=== PATIENT | female | born 1940 | race Two or more races ===

== ENCOUNTER 2022-11-09 17:09 | Emergency (ER) | payer MEDICARE, MEDICAID ==
[~2022-11-09] VITALS: Ht 165.1 cm; Wt 59.0 kg
[2022-11-09] MEDS ORDERED: KETOROLAC 60MG/2ML VIAL IM ONE (18:00)
[2022-11-09 19:00] VITALS: BP 150/72
== END 2022-11-10 02:16 ==
LOC: ER 17:09
DX: S40.011A Contusion of right shoulder, initial encounter (principal); S70.01XA Contusion of right hip, initial encounter; I11.0 Hypertensive heart disease with heart failure; I50.9 Heart failure, unspecified; F03.90 Unspecified dementia, unspecified severity, without behavioral disturbance, psychotic disturbance, mood disturbance, and anxiety; W01.0XXA Fall on same level from slipping, tripping and stumbling without subsequent striking against object, initial encounter; Y93.89 Activity, other specified; Y92.128 Other place in nursing home as the place of occurrence of the external cause
CPT/HCPCS: 73030; 73502; 96372; 99284; J1885

== ENCOUNTER 2022-11-11 17:13 | Inpatient (IN) | payer MEDICARE, MEDICAID ==
[~2022-11-11] VITALS: Ht 152.4 cm; Wt 76.2 kg
[2022-11-11 18:37] LABS: BG BASE EXCESS 0.4 mmol/L (-2.0-2.0); BG CARBOXYHEMOGLOBIN 0.3 % (0.5-1.5); BG DEOXYHEMOGLOBIN 10.4 % (0.0-5.0); BG FRACTION INSPIRED OXYGEN 21; BG HCO3 ACT 23.3 mmol/L (22.0-26.0); BG METHEMOGLOBIN 0.5 % (0.0-1.5); BG OXYGEN SATURATION 89.5 % (92.0-98.5); BG OXYHEMOGLOBIN 88.8 % (94.0-97.0); BG PCO2 31.8 mmHg (35.0-45.0); BG PH 7.483 (7.350-7.450); BG PO2 52.5 mmHg (75.0-100.0); BG SAMPLE SITE RIGHT BRACHIAL; BG TOTAL HEMOGLOBIN 11.4 g/dL (12.0-18.0); BG VENT MODE ROOM AIR
[2022-11-11] MEDS ORDERED: ALBUTEROL (0.083%) 2.5MG/3ML NEB HHN STA (18:41)
[2022-11-11] MEDS ORDERED: PREDNISONE 20MG TABLET PO STA (18:41)
[2022-11-11] MEDS ORDERED: IPRATROPIUM BROMIDE (0.02%) 0.5MG/2.5ML NEB HHN STA (18:41)
[2022-11-11] MEDS ORDERED: PIPERACILLIN/TAZ 3.375G PREMIX 50 ML IV ONE (19:45)
[2022-11-11] MEDS ORDERED: LEVOFLOXACIN 750MG PREMIX 150 ML IV ONE (19:45)
[2022-11-11 21:09] LABS: BASOPHILS % 0.3 % (0.0-2.0); EOSINOPHILS % 2.6 % (0.0-5.0); HEMATOCRIT. 32.8 % (36.0-48.0); HEMOGLOBIN. 10.9 g/dL (12.0-16.0); MEAN CORPUSCULAR VOLUME 87.3 fL (81.0-99.0); MEAN PLATELET VOLUME 7.6 fl (7.4-10.4); MONOCYTES % 11.6 % (2.0-8.0); NEUTROPHILS % 75.5 % (40.0-76.0); PLATELET 204 x1000/uL (130-400); RED BLOOD CELL COUNT 3.75 mill/uL (4.2-5.4)
[2022-11-11 21:17] LABS: CHLORIDE 106 mEq/L (98-107)
[2022-11-11 21:20] LABS: INR 1.1; PROTHROMBIN TIME 11.5 sec (9.6-11.0)
[2022-11-11] MEDS ORDERED: FUROSEMIDE 40MG/4ML VIAL IVP ONE (21:45)
[2022-11-11] MEDS ORDERED: PIPERACILLIN/TAZ 3.375G PREMIX 50 ML IV NR (23:15)
[2022-11-11] MEDS ORDERED: LEVOFLOXACIN 750MG PREMIX 150 ML IV NR (23:15)
[2022-11-12] VITALS (7 sets, daily range): BP systolic 93–127; BP diastolic 56–94
[2022-11-12] MEDS ORDERED: NITROGLYCERIN 0.4MG TABLET SL SL PRN
[2022-11-12] MEDS ORDERED: ACETAMINOPHEN 650MG/20.3ML UDC GT PRN ×2
[2022-11-12] MEDS ORDERED: CLONIDINE 0.1MG TABLET PO PRN
[2022-11-12] MEDS ORDERED: DIPHENHYDRAMINE 50MG/ML VIAL IV PRN
[2022-11-12] MEDS ORDERED: GUAIFENESIN 200MG/10ML SUGAR FREE UDC PO PRN
[2022-11-12] MEDS ORDERED: DOCUSATE SODIUM 100MG CAPSULE PO PRN
[2022-11-12] MEDS ORDERED: POTASSIUM CHLORIDE 20MEQ TABLET SR PO NR
[2022-11-12] MEDS ORDERED: IPRATROPIUM/ALBUTEROL 0.5-3(2.5)MG/3ML NEB HHN PRN
[2022-11-12] MEDS ORDERED: ONDANSETRON HCL 4MG/2ML INJ IV PRN
[2022-11-12] MEDS ORDERED: MAGNESIUM/ALUMINUM HYDROXIDE/SIMETHICONE 30ML UDC PO PRN
[2022-11-12 05:03] LABS: HEMATOCRIT. 33.1 % (36.0-48.0); MEAN CORPUSCULAR HEMOGLOBIN 28.7 pg (28.0-32.0); MEAN CORPUSCULAR VOLUME 86.3 fL (81.0-99.0); MEAN PLATELET VOLUME 8.1 fl (7.4-10.4); PLATELET 225 x1000/uL (130-400); RED BLOOD CELL COUNT 3.83 mill/uL (4.2-5.4); RED CELL DISTRIBUTION WIDTH 15.8 % (11.6-14.6)
[2022-11-12 05:10] LABS: CHLORIDE 103 mEq/L (98-107)
[2022-11-12 05:24] LABS: HDL CHOLESTEROL 74 mg/dL (40-59); LDL CHOLESTEROL 82 mg/dL (5-100); PHOSPHORUS 2.6 mg/dL (2.5-4.9); T4 FREE 1.49 ng/dL (0.76-1.46); TOTAL IRON BINDING CAPACITY 309 ug/dL (250-450)
[2022-11-12 05:28] LABS: FERRITIN 56 ng/mL (10-291)
[2022-11-12 05:41] LABS: FOLIC ACID (FOLATE) SERUM >20 ng/mL ng/mL (>5.38); VITAMIN B12 SERUM 418 pg/mL (211-911)
[2022-11-12] MEDS ORDERED: ENOXAPARIN 60MG/0.6ML SYR SUBCUT SCH (06:00)
[2022-11-12 08:07] LABS: BG BASE EXCESS 4.2 mmol/L (-2.0-2.0); BG CARBOXYHEMOGLOBIN 0.3 % (0.5-1.5); BG DEOXYHEMOGLOBIN 4.8 % (0.0-5.0); BG HCO3 ACT 27.7 mmol/L (22.0-26.0); BG METHEMOGLOBIN 0.2 % (0.0-1.5); BG OXYGEN SATURATION 95.2 % (92.0-98.5); BG OXYHEMOGLOBIN 94.7 % (94.0-97.0); BG PCO2 37.3 mmHg (35.0-45.0); BG PH 7.488 (7.350-7.450); BG PO2 72.5 mmHg (75.0-100.0); BG SAMPLE SITE RIGHT BRACHIAL; BG VENT MODE NASAL CANNULA
[2022-11-12] MEDS ORDERED: ENOXAPARIN 40MG/0.4ML SYR SUBCUT SCH (09:00)
[2022-11-12] MEDS: LISINOPRIL 10MG TABLET PO SCH ×2 (09:00)
[2022-11-12] MEDS: ASPIRIN 81MG EC TABLET PO SCH (09:00)
[2022-11-12] MEDS ORDERED: IOHEXOL-350 100 ML BOTTLE ONE (09:41)
[2022-11-12] MEDS: FUROSEMIDE 40MG/4ML VIAL IV SCH ×2 (09:59)
[2022-11-12 10:36] LABS: CREATINE KINASE 56 IU/L (26-192); CREATINE KINASE MB FRACTION < 1.0 ng/mL (0.5-3.6)
[2022-11-12 10:47] LABS: PLATELET ESTIMATE NORMAL
[2022-11-12] MEDS ORDERED: ALBUTEROL (0.083%) 2.5MG/3ML NEB HHN PRN (12:00)
[2022-11-12] MEDS ORDERED: IPRATROPIUM BROMIDE (0.02%) 0.5MG/2.5ML NEB HHN PRN (12:00)
[2022-11-12] MEDS ORDERED: CEFTRIAXONE 1 G PREMIX 50 ML IV SCH (14:45)
[2022-11-12] MEDS ORDERED: DEXL60CA3 PO (15:08)
[2022-11-12] MEDS ORDERED: MEMA5TAB42 PO (15:08)
[2022-11-12] MEDS ORDERED: LOSA50TA41 PO (15:08)
[2022-11-12] MEDS ORDERED: RANO500T3 PO (15:08)
[2022-11-12] MEDS ORDERED: PITA4TAB2 PO (15:08)
[2022-11-12] MEDS ORDERED: DULO60CA45 PO (15:08)
[2022-11-12] MEDS ORDERED: FURO-152 PO (15:08)
[2022-11-12 16:12] LABS: PHOSPHORUS 2.6 mg/dL (2.5-4.9)
[2022-11-12] MEDS: CEFTRIAXONE 1,000 MG in DEXTROSE 5% WATER 50 ML IV SCH (16:28)
[2022-11-12] MEDS ORDERED: AZITHROMYCIN 500 MG in DEXT 5% WATER 250 ML IV SCH (17:00)
[2022-11-12] MEDS ORDERED: DEXTROSE 50% WATER 50ML SYRINGE IV PRN (17:30)
[2022-11-12 18:55] LABS: CREATINE KINASE MB FRACTION 1.2 ng/mL (0.5-3.6)
[2022-11-13] VITALS (12 sets, daily range): BP systolic 92–129; BP diastolic 31–61
[2022-11-13] MEDS: BLOOD SUGAR DIAGNOSTIC STRIP TEST SCH (05:18)
[2022-11-13] MEDS: ENOXAPARIN 40MG/0.4ML SYR SUBCUT SCH (05:18)
[2022-11-13] MEDS: FUROSEMIDE 20MG TABLET PO SCH (08:28)
[2022-11-13] MEDS: DULOXETINE HCL 30MG DR CAPSULE PO SCH (08:28)
[2022-11-13] MEDS: LOSARTAN POTASSIUM 50 MG TABLET PO SCH (08:28)
[2022-11-13] MEDS: ASPIRIN 81MG EC TABLET PO SCH (08:28)
[2022-11-13 08:45] LABS: HEMATOCRIT. 30.8 % (36.0-48.0); HEMOGLOBIN. 10.3 g/dL (12.0-16.0); MEAN CORPUSCULAR HEMOGLOBIN 29.1 pg (28.0-32.0); MEAN CORPUSCULAR VOLUME 87.1 fL (81.0-99.0); MEAN PLATELET VOLUME 7.4 fl (7.4-10.4); PLATELET 241 x1000/uL (130-400); RED BLOOD CELL COUNT 3.54 mill/uL (4.2-5.4); RED CELL DISTRIBUTION WIDTH 15.8 % (11.6-14.6)
[2022-11-13 09:18] LABS: CHLORIDE 105 mEq/L (98-107)
[2022-11-13] MEDS: CEFTRIAXONE 1,000 MG in DEXTROSE 5% WATER 50 ML IV SCH (12:29)
[2022-11-13] MEDS: AZITHROMYCIN 500 MG TABLET PO SCH (13:34)
[2022-11-13 13:36] LABS: PLATELET ESTIMATE NORMAL
[2022-11-13 19:18] LABS: CLARITY URINE CLEAR (CLEAR); COLOR URINE YELLOW (YELLOW); KETONES URINE TRACE (NEGATIVE); LEUKOCYTE ESTERASE URINE 1+ (NEGATIVE); NITRITE URINE NEGATIVE (NEGATIVE); OCCULT BLOOD URINE NEGATIVE (NEGATIVE); PROTEIN URINE NEGATIVE (NEGATIVE); SPECIFIC GRAVITY URINE 1.022 (1.005-1.030); UROBILINOGEN URINE 0.2 E.U./dL (0.2-1.0)
[2022-11-14] VITALS (10 sets, daily range): BP systolic 94–139; BP diastolic 45–69
[2022-11-14] MEDS: ENOXAPARIN 40MG/0.4ML SYR SUBCUT SCH (05:44)
[2022-11-14 06:04] LABS: HEMATOCRIT. 33.1 % (36.0-48.0); HEMOGLOBIN. 10.7 g/dL (12.0-16.0); MEAN CORPUSCULAR HEMOGLOBIN 28.1 pg (28.0-32.0); MEAN CORPUSCULAR VOLUME 86.8 fL (81.0-99.0); MEAN PLATELET VOLUME 7.3 fl (7.4-10.4); PLATELET 285 x1000/uL (130-400); RED BLOOD CELL COUNT 3.81 mill/uL (4.2-5.4); RED CELL DISTRIBUTION WIDTH 15.7 % (11.6-14.6)
[2022-11-14 06:24] LABS: CHLORIDE 104 mEq/L (98-107)
[2022-11-14] MEDS: BLOOD SUGAR DIAGNOSTIC STRIP TEST SCH (06:28)
[2022-11-14] MEDS: LOSARTAN POTASSIUM 50 MG TABLET PO SCH (08:33)
[2022-11-14] MEDS: DULOXETINE HCL 30MG DR CAPSULE PO SCH (08:33)
[2022-11-14] MEDS: FUROSEMIDE 20MG TABLET PO SCH (08:34)
[2022-11-14] MEDS: ASPIRIN 81MG EC TABLET PO SCH (08:34)
[2022-11-14] MEDS ORDERED: LEVO-65 MT (10:33)
[2022-11-14] MEDS ORDERED: MIDO5TAB4 MT ×2 (10:33→10:37)
[2022-11-14] MEDS ORDERED: LACTULOSE 20G/30ML UDC PO NR (10:45)
[2022-11-14 11:04] LABS: PLATELET ESTIMATE NORMAL
[2022-11-14] MEDS: CEFTRIAXONE 1,000 MG in DEXTROSE 5% WATER 50 ML IV SCH (12:36)
[2022-11-14] MEDS: AZITHROMYCIN 500 MG TABLET PO SCH (12:36)
[2022-11-14] MEDS ORDERED: MIDODRINE HCL 5MG TABLET PO SCH (14:00)
[2022-11-15] MEDS ORDERED: LEVOFLOXACIN 500MG TABLET PO SCH (11:00)
[2022-11-16] MEDS ORDERED: LEVOFLOXACIN 250MG TABLET PO SCH (11:00)
== END 2022-11-14 22:00 | DRG 193 ==
LOC: ER 18:45 → MICUSO 22:07 → 5EST 11-12 11:30
PROVIDERS: ADMIT Hospitalist; ATTEND Hospitalist
DX: J18.9 Pneumonia, unspecified organism (principal); J96.01 Acute respiratory failure with hypoxia; J44.0 Chronic obstructive pulmonary disease with (acute) lower respiratory infection; G93.40 Encephalopathy, unspecified; I11.0 Hypertensive heart disease with heart failure; E87.6 Hypokalemia; G30.9 Alzheimer's disease, unspecified; I50.9 Heart failure, unspecified; D63.8 Anemia in other chronic diseases classified elsewhere; Z20.822 Contact with and (suspected) exposure to COVID-19; J44.9 Chronic obstructive pulmonary disease, unspecified; K21.9 Gastro-esophageal reflux disease without esophagitis; E78.00 Pure hypercholesterolemia, unspecified; F02.80 Dementia in other diseases classified elsewhere, unspecified severity, without behavioral disturbance, psychotic disturbance, mood disturbance, and anxiety; E78.5 Hyperlipidemia, unspecified; R73.9 Hyperglycemia, unspecified; Z79.899 Other long term (current) drug therapy
CPT/HCPCS: 36415; 36600; 71045; 71275; 80053; 80061; 81003; 82375; 82550; 82553; 82607; 82728; 82746; 82805; 82962; 83036; 83540; 83550; 83605; 83735; 83880; 84100; 84439; 84443; 84484; 85025; 85379; 86850; 86900; 87426; 87804; 93005; 93306; 93970; 94640; 97162; 99291; J0456; J0696; J1650; J1940; J1956; J2543; J7060; J7512; Q9967

== ENCOUNTER 2023-03-03 20:06 | Emergency (ER) | payer MEDICARE, MEDICAID ==
[~2023-03-03] VITALS: Ht 162.6 cm; Wt 82.0 kg
[~2023-03-03 20:06] MED LIST: DEXL60CA3 PO; DULO60CA45 PO; FURO-152 PO; LEVO-65 MT; LOSA50TA41 PO; MEMA5TAB42 PO; MIDO5TAB4 MT; PITA4TAB2 PO; RANO500T3 PO
[2023-03-03 21:07] LABS: BASOPHILS % 0.1 % (0.0-2.0); EOSINOPHILS % 0.7 % (0.0-5.0); HEMATOCRIT. 35.1 % (36.0-48.0); HEMOGLOBIN. 11.3 g/dL (12.0-16.0); LYMPHOCYTES % 18.9 % (20.0-50.0); MEAN CORPUSCULAR HEMOGLOBIN 27.3 pg (28.0-32.0); MEAN PLATELET VOLUME 7.5 fl (7.4-10.4); MONOCYTES % 13.4 % (2.0-8.0); NEUTROPHILS % 66.9 % (40.0-76.0); PLATELET 262 x1000/uL (130-400); RED BLOOD CELL COUNT 4.13 mill/uL (4.2-5.4); RED CELL DISTRIBUTION WIDTH 15.2 % (11.6-14.6)
[2023-03-03 21:12] LABS: CHLORIDE 106 mEq/L (98-107)
[2023-03-03 23:28] VITALS: BP 138/73
== END 2023-03-03 23:29 | disposition home or self-care (01) ==
LOC: ER 20:06
DX: S09.90XA Unspecified injury of head, initial encounter (principal); W18.39XA Other fall on same level, initial encounter; Y93.89 Activity, other specified; Y92.89 Other specified places as the place of occurrence of the external cause; Y99.8 Other external cause status; N28.9 Disorder of kidney and ureter, unspecified; I11.0 Hypertensive heart disease with heart failure; I50.9 Heart failure, unspecified; D64.9 Anemia, unspecified; K21.9 Gastro-esophageal reflux disease without esophagitis; E78.00 Pure hypercholesterolemia, unspecified; Z79.899 Other long term (current) drug therapy
CPT/HCPCS: 36415; 80053; 85025; 93005; 99285

== ENCOUNTER 2023-03-18 22:08 | Emergency (ER) | payer MEDICARE, MEDICAID ==
[~2023-03-18] VITALS: Ht 165.1 cm; Wt 73.0 kg
[2023-03-18] MEDS ORDERED: FAMOTIDINE 20MG/2ML VIAL IV STA (22:43)
[2023-03-18] MEDS ORDERED: MORPHINE SULFATE 4 MG/ML CPJ (NOT FOR IM USE) IV STA (22:43)
[2023-03-18] MEDS ORDERED: SODIUM CHLORIDE 0.9% 1,000 ML IV ONE (22:45)
[2023-03-19] MEDS ORDERED: FAMOTIDINE 20MG/2ML VIAL IV NR (00:15)
[2023-03-19] MEDS ORDERED: HYDROCODONE/ACETAMINOPHEN 5/325MG TABLET PO NR (00:15)
[2023-03-19] MEDS ORDERED: DIPHENHYDRAMINE 50MG/ML VIAL IM ONE (01:15)
[2023-03-19] MEDS ORDERED: LORAZEPAM 2MG/ML CPJ IM ONE (01:15)
[2023-03-19 06:00] VITALS: BP 137/64
== END 2023-03-19 11:43 ==
LOC: ER 22:08 → CANBEDREQ 03-19 19:52
DX: M48.56XA Collapsed vertebra, not elsewhere classified, lumbar region, initial encounter for fracture (principal); I11.0 Hypertensive heart disease with heart failure; I50.9 Heart failure, unspecified; D64.9 Anemia, unspecified; F03.90 Unspecified dementia, unspecified severity, without behavioral disturbance, psychotic disturbance, mood disturbance, and anxiety; E78.00 Pure hypercholesterolemia, unspecified; Z79.899 Other long term (current) drug therapy
CPT/HCPCS: 72100; 72170; 74176; 93005; 96372; 99285; J1200; J2060; 80053; 81003; 84484; J2270; J7030